=== PATIENT | male | born 1960 | race Two or more races ===

== ENCOUNTER 2023-08-13 23:40 | Emergency (ER) | payer OTHER ==
[~2023-08-13] VITALS: Ht 198.1 cm; Wt 99.8 kg
[2023-08-14] MEDS ORDERED: ATIVAN2 M1 PO (00:22)
[2023-08-14] MEDS ORDERED: ZOLOFT20 MG/1 ML (00:22)
[2023-08-14] MEDS ORDERED: DOXYCYCLINE HYC20 MG PO (00:23)
[2023-08-14] MEDS ORDERED: NARCAN4 MG (00:23)
[2023-08-14] MEDS ORDERED: 0.9 % SODIUM CHLORIDE 1,000 ML IV SCH (00:30)
[2023-08-14 00:49] LABS: HEMATOCRIT 35.6 % (39.0-48.0); HEMOGLOBIN 12.3 g/dL (13-16.00); MEAN CELL VOLUME 84.2 fL (80.0-100.00); MEAN CORPUSCULAR HGB CONC 34.5 g/dl (32.0-36.0); PLATELET COUNT 236 K/uL (150-450); RED BLOOD COUNT 4.23 M/uL (4.00-6.00); RED CELL DISTRIBUTION WIDTH 16.3 % (11.5-14.5)
[2023-08-14 01:23] LABS: ALBUMIN 3.8 gm/dL (3.4-5.0); BILIRUBIN TOTAL 0.58 mg/dL (0.3-1.2); CALCIUM 9.1 mg/dL (8.5-10.1); CREATININE SERUM 0.8 mg/dL (0.70-1.30); GFR 97.02; GLOBULINA 3.5 G/DL (2.4-3.5); POTASSIUM 3.97 mEq/L (3.5-5.1); TOTAL PROTEIN 7.3 gm/dL (6.4-8.2)
[2023-08-14 02:08] LABS: COCAINE NEGATIVE (NEGATIVE); METHADONE NEGATIVE (NEGATIVE); OPIATES NEGATIVE (NEGATIVE); THC ( Cannabinoids) NEGATIVE (NEGATIVE)
[2023-08-14] MEDS ORDERED: KETOROLAC TROMETHAMINE 30 MG VIAL IV ONE (02:30)
[2023-08-14] MEDS ORDERED: METHYLPREDNISOLONE SOD SUCC 125 MG VIAL IV ONE (02:30)
== END 2023-08-14 02:47 | disposition home or self-care (01) ==
LOC: ER 23:40
PROVIDERS: General Practice
DX: R07.0 Pain in throat (principal); I10 Essential (primary) hypertension